=== PATIENT | female | born 1990 | race American Indian/Alaskan Native ===

== ENCOUNTER 2016-12-28 17:25 | Emergency (ER) | payer SELFPAY ==
[2016-12-28 18:31] LABS: Eosinophils % (Auto) 1.5 % (0.0-4.3); Hematocrit 42.1 % (30.3-42.9); Hemoglobin 14.2 gm/dl (10.1-14.3); Mean Corpuscular HGB Conc 34 % (30-34); Mean Corpuscular Hemoglobin 29 pg (28-32); Mean Corpuscular Volume 87 fl (79-97); Platelet Count 274 K/mm3 (140-440); Red Blood Count 4.86 M/mm3 (3.65-5.03); Red Cell Distribution Width 12.8 % (13.2-15.2); White Blood Count 9.4 K/mm3 (4.5-11.0)
[2016-12-28 18:53] LABS: Alanine Aminotransferase 14 units/L (7-56); Albumin 4.5 g/dL (3.9-5); Albumin/Globulin Ratio 1.3 %; Alkaline Phosphatase 96 units/L (35-129); Anion Gap 18 mmol/L; BUN/Creatinine Ratio 18.33; Blood Urea Nitrogen 11 mg/dL (7-17); Calcium 9.6 mg/dL (8.4-10.2); Carbon Dioxide 24 mmol/L (22-30); Glucose 354 mg/dL (65-100); Lipase 46 units/L (13-60); Potassium 3.9 mmol/L (3.6-5.0); Sodium 131 mmol/L (137-145)
[2016-12-28 19:29] LABS: Bilirubin,Urine NEG (Negative); Blood,Urine NEG (Negative); Ketones,Urine TR mg/dL (Negative); Leukocyte Esterase,Urine TR (Negative); Mucus,Urine FEW /HPF; Nitrite,Urine NEG (Negative); Protein,Urine <15 mg/dL mg/dL (Negative); Urobilinogen,Urine < 2.0 mg/dL (<2.0); WBC,Urine < 1.0 /HPF (0.0-6.0)
--- NOTE | 2016-12-28 22:17 | Emergency Department Report ---
ED General Adult HPI - General Chief complaint: Abdominal Pain Stated complaint: ABDOMINAL PAIN Time Seen by Provider: 12/28/16 22:16 Source: patient, RN notes reviewed Mode of arrival: Ambulatory Limitations: No Limitations - History of Present Illness Initial comments: This is a 26-year-old female. She is previously known to me. She does not have a primary care doctor. She is a past medical history of diabetes and hypertension. She reports a past medical history of STD but is not certain. The patient presents to the ER with lower abdominal pain, lower back pain, nausea, vomiting diarrhea. Symptoms have been present for 3 weeks. Emesis is clear, nonbloody and nonbilious. She reports in the past 2 days, her diarrhea has since resolved. She describes lower vaginal pain. Patient denies vaginal discharge. She denies irritative and obstructive urinary symptoms. The patient reports hives with amoxicillin but no anaphylaxis. The pain is achy, increases with palpation, decreases with rest. -: Gradual Location: back, abdomen, pelvis, genitals Quality: aching Consistency: intermittent Improves with: rest Worsens with: movement Associated Symptoms: loss of appetite, malaise, nausea/vomiting. denies: confusion, chest pain, cough, diaphoresis, fever/chills - Related Data Home Medications Medication Instructions Recorded Confirmed Last Taken Lantus VIAL 32 units SQ HS 12/28/16 12/28/16 Unknown Lisinopril [Zestril TAB] 10 mg DAILY 12/28/16 12/28/16 Unknown Pravastatin Sodium [Pravastatin] 10 mg HS 12/28/16 12/28/16 Unknown glipiZIDE [Glucotrol] 5 mg PO QDAY 12/28/16 12/28/16 Unknown metFORMIN [Glucophage] 500 mg PO BID 12/28/16 12/28/16 Unknown Previous Rx's Medication Instructions Recorded Last Taken Type Dicyclomine [Bentyl] 10 mg PO QID PRN #20 capsule 12/29/16 Unknown Rx Doxycycline [Vibramycin] 100 mg PO Q12HR #28 capsule 12/29/16 Unknown Rx Ketorolac [Toradol] 10 mg PO Q6H PRN #20 tablet 12/29/16 Unknown Rx Ondansetron [Zofran Odt] 4 mg PO QID PRN #20 tab.rapdis 12/29/16 Unknown Rx Allergies Allergy/AdvReac Type Severity Reaction Status Date / Time amoxicillin Allergy Hives Verified 12/28/16 18:04 ED Review of Systems ROS: Stated complaint: ABDOMINAL PAIN Other details as noted in HPI Constitutional: denies: fever, malaise Eyes: denies: vision change ENT: denies: epistaxis Respiratory: denies: cough Cardiovascular: denies: chest pain Gastrointestinal: abdominal pain, diarrhea Genitourinary: as per HPI. denies: dysuria, abnormal menses Musculoskeletal: back pain Skin: denies: lesions Neurological: denies: weakness Psychiatric: anxiety ED Past Medical Hx - Past Medical History Hx Hypertension: Yes Hx Diabetes: Yes - Surgical History Past Surgical History?: No - Social History Smoking Status: Current Every Day Smoker Substance Use Type: Alcohol - Medications Home Medications: Home Medications Medication Instructions Recorded Confirmed Last Taken Type Lantus VIAL 32 units SQ HS 12/28/16 12/28/16 Unknown History Lisinopril [Zestril TAB] 10 mg DAILY 12/28/16 12/28/16 Unknown History Pravastatin Sodium [Pravastatin] 10 mg HS 12/28/16 12/28/16 Unknown History glipiZIDE [Glucotrol] 5 mg PO QDAY 12/28/16 12/28/16 Unknown History metFORMIN [Glucophage] 500 mg PO BID 12/28/16 12/28/16 Unknown History Dicyclomine [Bentyl] 10 mg PO QID PRN #20 capsule 12/29/16 Unknown Rx Doxycycline [Vibramycin] 100 mg PO Q12HR #28 capsule 12/29/16 Unknown Rx Ketorolac [Toradol] 10 mg PO Q6H PRN #20 tablet 12/29/16 Unknown Rx Ondansetron [Zofran Odt] 4 mg PO QID PRN #20 tab.rapdis 12/29/16 Unknown Rx ED Physical Exam - General Limitations: No Limitations General appearance: alert, in no apparent distress - Head Head exam: Present: atraumatic, normocephalic - Eye Eye exam: Present: normal appearance, EOMI. Absent: nystagmus - ENT ENT exam: Present: normal exam, normal orophraynx, mucous membranes moist, normal external ear exam - Neck Neck exam: Present: normal inspection, full ROM. Absent: tenderness, meningismus - Respiratory Respiratory exam: Present: normal lung sounds bilaterally. Absent: respiratory distress, wheezes, rales, rhonchi, stridor, chest wall tenderness, accessory muscle use, decreased breath sounds, prolonged expiratory - Cardiovascular Cardiovascular Exam: Present: normal rhythm, tachycardia, normal heart sounds. Absent: bradycardia, systolic murmur, diastolic murmur, rubs, gallop - GI/Abdominal GI/Abdominal exam: Present: soft, tenderness, normal bowel sounds, other (there is mild lower abdominal tenderness, there is no rebound, guarding or peritoneal signs). Absent: distended, guarding, rebound, rigid, pulsatile mass - External exam: Present: normal external exam Speculum exam: Present: normal speculum exam, cervical discharge Bi-manual exam: Present: cervical motion tendernes, adnexal tenderness, uterine tenderness, other (during the gynecologic examination, I am escorted by nurse JOSÉ PERKINS) - Extremities Exam Extremities exam: Present: normal inspection, full ROM, normal capillary refill. Absent: pedal edema, joint swelling, calf tenderness - Back Exam Back exam: Present: normal inspection, full ROM. Absent: tenderness, CVA tenderness (R), CVA tenderness (L), muscle spasm, paraspinal tenderness, vertebral tenderness - Neurological Exam Neurological exam: Present: alert, oriented X3, normal gait, other (Extraocular movements intact. Tongue midline. No facial droop. Facial sensation intact to light touch in the V1, V2, V3 distribution bilaterally. 5 and 5 strength in 4 extremities.. Sensation is intact to light touch in 4 extremities.). Absent : motor sensory deficit - Psychiatric Psychiatric exam: Present: normal affect, normal mood - Skin Skin exam: Present: warm, dry, intact, normal color. Absent: rash ED Course Vital Signs 12/28/16 12/28/16 12/29/16 18:04 22:40 00:23 Temperature 99.0 F 98.9 F Pulse Rate 103 H 77 94 H Respiratory 18 18 18 Rate Blood Pressure 145/95 Blood Pressure 115/76 103/63 [Right] O2 Sat by Pulse 100 96 98 Oximetry - Reevaluation(s) Reevaluation #1: 12/29/16 01:01 Differential diagnosis: , colitis, diverticulitis, inflammatory bowel disease, appendicitis, pelvic inflammatory disease, endometriosis Assessment and plan: 26-year-old female with lower abdominal pain, tenderness, tender gynecologic examination. Most likely pelvic inflammatory disease. She' ll be treated symptomatically. She will be treated empirically for pelvic inflammatory disease. A CT scan of the abdomen and pelvis is ordered and pending. She is not . Urinalysis is not corroborate UTI. Reevaluation #2: 12/29/16 01:43 reassessed, abdomen soft on repeat examination. The CT scan does not demonstrate the appendix directly, but no indirect signs of appendicitis are noted. Nonspecific mesenteric adenitis is suggested. This may be the etiology of the patient's pain. Patient was treated empirically for pelvic inflammatory disease. She will be discharged with pain medication, nausea medication, instructions to follow up with local gynecology. Return precautions are essentially reviewed. Reevaluation #3: 12/29/16 02:06 hyperglycemia is appreciated. This is associated without anion gap acidosis. This is likely chronic, and is asymptomatic. I don't believe the patient requires emergent decrease of her hyperglycemia at this point. She can follow up with the primary care doctor for this. ED Medical Decision Making - Lab Data Result diagrams: 12/28/16 18:16 12/28/16 18:16 Vital Signs 12/28/16 12/28/16 12/29/16 18:04 22:40 00:23 Temperature 99.0 F 98.9 F Pulse Rate 103 H 77 94 H Respiratory 18 18 18 Rate Blood Pressure 145/95 Blood Pressure 115/76 103/63 [Right] O2 Sat by Pulse 100 96 98 Oximetry Labs 12/28/16 12/28/16 12/28/16 18:16 18:16 18:20 WBC 9.4 RBC 4.86 Hgb 14.2 Hct 42.1 MCV 87 MCH 29 MCHC 34 RDW 12.8 L Plt Count 274 Lymph % (Auto) 35.4 H [place] % (Auto) 5.8 Eos % (Auto) 1.5 Baso % (Auto) 1.0 Lymph # 3.3 [place] # 0.5 Eos # 0.1 Baso # 0.1 Seg Neutrophils % 56.3 Seg Neutrophils # 5.3 Sodium 131 L Potassium 3.9 Chloride 93.0 L Carbon Dioxide 24 Anion Gap 18 BUN 11 Creatinine 0.6 L Estimated GFR > 60 BUN/Creatinine Ratio 18.33 Glucose 354 H Calcium 9.6 Total Bilirubin 0.30 AST 13 ALT 14 Alkaline Phosphatase 96 Total Protein 8.0 Albumin 4.5 Albumin/Globulin Ratio 1.3 Lipase 46 Urine Color Straw Urine Turbidity Clear Urine pH 5.0 Ur Specific [place] 1.017 Urine Protein <15 mg/dl Urine Glucose (UA) >=500 Urine Ketones Tr Urine Blood Neg Urine Nitrite Neg Urine Bilirubin Neg Urine Urobilinogen < 2.0 Ur Leukocyte Esterase Tr Urine WBC (Auto) < 1.0 Urine RBC (Auto) 3.0 U Epithel Cells (Auto) 4.0 Urine Mucus Few Urine HCG, Qual Negative - Radiology Data Radiology results: report reviewed, image reviewed The CT scan of the abdomen and pelvis with IV contrast does not demonstrate the appendix. There is no indirect evidence of appendicitis. There are enlarged mesenteric and retroperitoneal lymph nodes which are nonspecific but might indicate mesenteric adenitis. The gynecologic structures are unremarkable. Given that patient has been having symptoms for 3 weeks, I think appendicitis is very unlikely. Critical care attestation.: If time is entered above; I have spent that time in minutes in the direct care of this critically ill patient, excluding procedure time. ED Disposition Clinical Impression: Abdominal pain Disposition: DISCHARGED TO HOME OR SELFCARE Is pt being admited?: No Does the pt Need Aspirin: No Condition: Stable Instructions: Abdominal Pain (ED) Additional Instructions: Do not take metformin for the next 48 hours. As we discussed, your laboratory studies appeared to be within normal limits. You are not . The CT scan of the abdomen and pelvis demonstrated nonspecific enlargement of lymph nodes. Given all this, you'll be treated empirically for disease called pelvic inflammatory disease. We typically treat young females with unexplained lower abdominal pain to protect your ability to have children safely in the future. Cultures were sent today, and results will be available next 3-5 days. Please have your primary care doctor call the medical records department to obtain your culture results. Take the antibiotic therapy as directed. Take the nausea medication and pain medication as directed. I recommend outpatient testing for sexually transmitted diseases, including hepatitis, syphilis and HIV. I also recommend that you abstain from sexual activity until you have completed her antibiotic therapy, a physician states that it is safe for you to resume sexual activity, and any partners that you have been sexually active with have been tested/treated/evaluated for sexual transmitted diseases. Please follow-up with physician within 3-5 days. I recommend that you return to the ER right away with worsening pain, migration of pain, intractable nausea/vomiting, inability tolerate liquid feeds. Prescriptions: Dicyclomine [Bentyl] 10 mg PO QID PRN #20 capsule PRN Reason: Pain Doxycycline [Vibramycin] 100 mg PO Q12HR #28 capsule Ketorolac [Toradol] 10 mg PO Q6H PRN #20 tablet PRN Reason: Pain Ondansetron [Zofran Odt] 4 mg PO QID PRN #20 tab.rapdis PRN Reason: Nausea Referrals: PRIMARY CAREMD [Primary Care Provider] - 3-5 Days CHANTE DOMINGO MD [Staff Physician] - 3-5 Days [facility] [Provider Group] - 3-5 Days [facility] [Provider Group] - 3-5 Days [facility] [Provider Group] - 3-5 Days
[2016-12-28] MEDS ORDERED: NACL 0.9% 1000 ML 1,000 ML IV ONE (22:21)
[2016-12-28] MEDS ORDERED: ZOFRAN IV ONE (22:21)
[2016-12-28] MEDS ORDERED: TORADOL IV ONE (22:21)
[2016-12-28] MEDS ORDERED: TYLENOL PO ONE (22:22)
[2016-12-28] MEDS ORDERED: ROCEPHIN 250 MG in NACL 0.9% 50 ML IV ONE (22:28)
[2016-12-28] MEDS ORDERED: VIBRAMYCIN PO ONE (22:28)
[2016-12-28] MEDS ORDERED: FLAGYL PO ONE (22:28)
[2016-12-28] MEDS ORDERED: MORPHINE IV ONE (22:29)
[2016-12-29] MEDS ORDERED: NACL ONE (00:29)
--- NOTE | 2016-12-29 01:24 | Cat Scan Report ---
FINAL REPORT PROCEDURE: CT ABDOMEN PELVIS W CON TECHNIQUE: Computerized axial tomography of the abdomen and pelvis was performed after the IV injection of iodinated nonionic contrast. HISTORY: abd pain n/v COMPARISON: No prior studies are available for comparison. FINDINGS: Visualized lower thorax: No significant abnormality. Liver: There is fatty infiltration of the liver. There is no liver mass.. Spleen: Normal size and attenuation. Gallbladder and biliary system: Normal. Pancreas: Normal. Adrenals: Normal. Kidneys: There are no kidney stones. There is no hydronephrosis.. GI tract: There is no bowel obstruction, colitis or enteritis. The appendix is not identified. There is no indirect evidence of appendicitis.. Lymph nodes and mesentery: There are enlarged mesenteric and retroperitoneal lymph nodes which are nonspecific but could indicate mesenteric adenitis.. Vasculature: Normal. Bladder: Normal. Reproductive organs: Uterus and ovaries are unremarkable.. Peritoneum: There is no ascites or free air.. Musculoskeletal structures: No significant abnormality. Other: None. IMPRESSION: There is fatty infiltration of the liver. There is no liver mass.. There are no kidney stones. There is no hydronephrosis.. There is no bowel obstruction, colitis or enteritis. The appendix is not identified. There is no indirect evidence of appendicitis.. There are enlarged mesenteric and retroperitoneal lymph nodes which are nonspecific but could indicate mesenteric adenitis.. Uterus and ovaries are unremarkable.. There is no ascites or free air..
[2016-12-29 02:34] VITALS: BP 120/76
== END 2016-12-29 02:33 | disposition home or self-care (01) ==
LOC: ED 17:25
DX: R10.30 Lower abdominal pain, unspecified (principal); I10 Essential (primary) hypertension; E11.9 Type 2 diabetes mellitus without complications; F17.200 Nicotine dependence, unspecified, uncomplicated
CPT/HCPCS: 36415; 74177; 80053; 81001; 81025; 82962; 83690; 85025; 87591; 96365; 96375; 99284; J0696; J1885; J2270; J2405; J7030; Q9967